=== PATIENT | male | born 1975 | race Caucasian/White ===

== ENCOUNTER 2020-04-13 14:25 | Emergency (ER) | payer SELFPAY ==
[~2020-04-13] VITALS: Ht 172.7 cm; Wt 78.0 kg
[2020-04-13 14:27] VITALS: BP 147/110
--- NOTE | 2020-04-13 14:35 | NUR ---
DA NGUYEN FOR PREBOOK. C/O RIGHT HAND PAIN & SWELLING S/P DOG BITE X 3 DAYS. REFUSED TO GIVE INFORMATION ABOUT DOG BITE. SEEN BY [facility] SEIZURE LAST WEEK. PMH: [email or web address] Addendum: 04/13/20 at 1443 by [email or web address] PER LOUISA NGUYEN : PT HAD SEIZURE FROM USING DRUG.
--- NOTE | 2020-04-13 14:48 | NUR ---
Patient being evaluated by DR HUDSON at bedside.
[2020-04-13] MEDS ORDERED: AMOXIL/CLAVULANATE 875/125 MG 1 TAB PO ONE (15:10)
[2020-04-13] MEDS ORDERED: AMOXIL/CLAVULANATE 875/125 MG 1 TAB ONE (15:10)
--- NOTE | 2020-04-13 15:32 | NUR ---
Note karena in EDM - 04/13/20 at 1535 by [facility] Patient discharged with v/s stable. Written and verbal after care instructions given and explained. Patient alert, oriented and verbalized understanding of instructions. Ambulatory with steady gait. All questions addressed prior to discharge. ID band removed. Patient advised to follow up with PMD. Rx of AUGMENTIN given. Patient educated on indication of medication including possible reaction and side effects. Opportunity to ask questions provided and answered.
[2020-04-13 15:33] VITALS: BP 123/91
--- NOTE | 2020-04-13 15:34 | NUR ---
Note maralone in EDM - 04/13/20 at 1535 by [facility] Patient discharged with v/s stable. Written and verbal after care instructions given and explained. Patient alert, oriented and verbalized understanding of instructions. Police with in custody. All questions addressed prior to discharge. ID band removed. Patient advised to follow up with PMD. Rx of AUGMENTIN given. Patient educated on indication of medication including possible reaction and side effects. Opportunity to ask questions provided and answered.
== END 2020-04-13 15:33 ==
LOC: MED 14:25
DX: S61.451A Open bite of right hand, initial encounter (principal); L03.113 Cellulitis of right upper limb; W54.0XXA Bitten by dog, initial encounter; Y93.89 Activity, other specified; Y92.89 Other specified places as the place of occurrence of the external cause; Y99.8 Other external cause status
CPT/HCPCS: 99283